=== PATIENT | female | born 1945 | race Caucasian/White ===

== ENCOUNTER 2017-01-11 18:02 | Inpatient (IN) | payer OTHER ==
[~2017-01-11] VITALS: Ht 154.9 cm; Wt 87.7 kg
[~2017-01-11 18:02] MED LIST: ATOR-22 PO; CHOL100040 PO; CLON1TAB3 PO; CZR25 PO; FLUO40CA8 PO; GABA1CAP5 PO; GLIP5TAB3 PO; INSU1INJ SC; LISI10TA PO; MAGN500T4 PO; MECL1TAB42 PO; METF500T5 PO; OMEP20CA9 PO; VERA240C2 PO
[2017-01-11 20:30] VITALS: BP 161/77; PULSE 106; TEMP 37.8; O2SAT 90; Ht 154.9 cm; Wt 87.7 kg
--- NOTE | 2017-01-11 20:34 | HISTORY & PHYSICAL EXAMINATION ---
DATE OF ADMISSION: 01/11/2017 ADMISSION HISTORY AND PHYSICAL This is admission to [facility]. SUBJECTIVE CHIEF COMPLAINT: Right elbow pain. HISTORY OF PRESENT ILLNESS: This is a patient who has had progressively worsening right elbow pain over the past 2 months. She was seen in the beginning of August 2016 at our [facility] [place] office and had an injection performed into the right elbow into the olecranon area. Approximately 2 months later, she started having swelling again; however, the swelling is more severe. She had been just treated conservatively with watchful waiting as well as anti-inflammatory medications; however, the swelling began to worsen more recently. She was seen earlier today by Dr. Jamilah Man at [facility] office and labs were performed as well as a prescription for Keflex sent to her pharmacy. She was also instructed to follow up here at [facility] afterhours urgent care. After evaluation and treatment, she is now being admitted directly to the hospital for IV antibiotic treatment and possible surgical evaluation within the next 1-2 days. PAST MEDICAL HISTORY: Hypertension, hyperlipidemia, obesity, COPD; type 2 diabetes, however, treated with insulin; chronic kidney disease, stage III; history of CVA, history of renal calculi and depression. CURRENT MEDICATIONS: Metformin ER 500 mg 2 by mouth daily, verapamil SR 240 mg 1 p.o. daily, fluoxetine 40 mg 1 p.o. daily, Plavix 75 mg 1 p.o. daily, Prilosec 20 mg 1 p.o. daily, Klonopin 0.5 mg 1 p.o. q. 8 hours as needed for anxiety, Proventil HFA 2 puffs q.i.d. as needed, meclizine 25 mg 1 p.o. t.i.d. p.r.n., lisinopril 2.5 mg 1/2 tablet p.o. daily, aspirin 81 mg p.o. daily, magnesium gluconate 250 mg p.o. daily, vitamin D3 200 units p.o. daily, Novolin 70/30 insulin 15 units subQ q.a.m. and 12 units subQ at bedtime, glipizide 5 mg 1 p.o. daily, Lipitor 20 mg 1 p.o. at bedtime, Neurontin 400 mg one p.o. at bedtime. FAMILY HISTORY: Noncontributory. SOCIAL HISTORY: The patient is a previous smoker. She currently has been using a vaporizer for nicotine to help stop smoking. The patient denies alcohol use. PAST SURGICAL HISTORY: Appendectomy, cholecystectomy, tubal ligation, umbilical hernia surgery, a and a knee surgery. ALLERGIES: No known drug allergies. OBJECTIVE PHYSICAL EXAMINATION: GENERAL: The patient is alert and oriented x3. She is in no acute distress. She is a well-dressed, well-nourished 71-year-old female. Her affect is appropriate. She is having obvious noted discomfort within the right elbow; however, she sits comfortably in her exam chair. CARDIOVASCULAR: Heart has a regular rhythm and rate without murmurs. LUNGS: Clear to auscultation; however, there are decreased breath sounds throughout. Her radial pulses +2/4. Cap refill is less than 2 seconds. LYMPHATIC: No evidence of any swollen lymph nodes. MUSCULOSKELETAL: Upon inspection of the patient's right elbow, the patient is noted to have relatively small olecranon bursitis, measuring approximately 2.5 cm in diameter. There is mild fluctuance; however, there is moderate erythema noted. There are no open areas noted. There is no draining. There is noted to be some fluctuance of the bursa. The patient is also noted to have a large area of erythema more distally along the forearm as well as moderate to severe swelling of the proximal aspect of the forearm, particularly when compared to her left forearm. There is painful range of motion right elbow, both passively and actively, also any palpation of the forearm and elbow create moderate pain. NEUROLOGIC: Sensation is normal intact distally, right upper extremity in the ulnar, radial, and median nerve distributions. SKIN: As previously noted, there are no open areas within the right elbow; however, the patient had noted that there have been some drainage from the elbow, within the past few days. X-RAY EXAM: Three views of the right elbow were reviewed. There are no fractures or dislocations noted. There is a small spur located at the most proximal aspect of the olecranon, no significant arthritis noted of the right elbow. ASSESSMENT AND DIAGNOSES: 1. Septic olecranon bursitis, right upper extremity. 2. Right upper extremity cellulitis. PLAN: Above assessment was discussed with the patient. At this time, the patient's right elbow was aspirated using a 10 mL syringe and an 18 gauge needle, there is a very small amount approximately 0.5 to 1 mL of bloody purulent material aspirated from the right elbow. This was marked as specimen and the patient is instructed to take it to the hospital with her. At this time, she will be directly admitted to [facility] [address] under Dr. Faust's service. At this time, she is to continue all of her home medications. She will also be started on Ancef 2 grams IV every 8 hours. Also Sorento 5/325 mg 1 to 2 by mouth every 6 hours as needed for pain. The aspirate is going to be sent for Gram stain and also culture and sensitivity for aerobic and anaerobic. The patient is to hand carry this from the office to the hospital. There were previous labs done at [facility]. There was a CBC, sed rate, and a CRP as well as I believe a uric acid. We should be able to have those labs imported to the hospital system. Will also have a BMP and a PT/INR performed upon the patient's admission. [facility] care as well as COPD care and also clearance for I\T\D of the right elbow, possibly on Saturday, which is 2 days from now. At this time, will keep a dry dressing on the patient's right elbow. We also may want to consider an MRI of the right elbow, if she does not seem like she is progressing tomorrow after 2-3 doses of her IV antibiotics. She will be reevaluated tomorrow by Dr. Faust or Link Schaffer PA-C for any further imaging. She was instructed there may be possibility of surgical treatments in approximately 2 days. ANKUSH
[2017-01-11] MEDS ORDERED: HYDROCODONE/ACETAMOPHEN 5/325MG TAB PO PRN (21:15)
[2017-01-11] MEDS ORDERED: GLUCOSE 10 TABS/TUBE PO PRN ×2 (21:15→22:30)
[2017-01-11] MEDS ORDERED: DEXTROSE 50% 50 ML SYR IV PRN ×2 (21:15→22:30)
[2017-01-11] MEDS ORDERED: GLUCOSE 40% GEL 15 GM TUBE PO PRN ×2 (21:15→22:30)
[2017-01-11] MEDS ORDERED: GLUCAGON FOR INJ 1 MG VIAL SQ PRN ×2 (21:15→22:30)
[2017-01-11] MEDS ORDERED: CLONAZEPAM 0.5 MG TAB PO PRN (21:45)
[2017-01-11] MEDS ORDERED: ALBUTEROL HFA INHALER 18 GM INH PRN (21:45)
[2017-01-11] MEDS: GABAPENTIN 400 MG CAP PO SCH (21:59)
[2017-01-11] MEDS: ATORVASTATIN 20 MG TAB PO SCH (21:59)
[2017-01-11] MEDS ORDERED: CEFAZOLIN SOD 2000 MG in DEXTROSE 5% 50ML IV SCH (22:00)
[2017-01-11] MEDS ORDERED: ACETAMINOPHEN 325 MG TAB PO ONE (22:20)
[2017-01-11 22:21] LABS: INR 0.9 (0.9-1.1); PROTHROMBIN TIME (PATIENT) 9.5 SECONDS (9.0-12.0)
[2017-01-11] MEDS ORDERED: ACETAMINOPHEN 325 MG TAB PO PRN (22:30)
[2017-01-11 22:33] LABS: PARTIAL THROMBOPLASTIN RATIO 0.9
[2017-01-11 22:43] LABS: ALT/SGPT 22 U/L (12-78); AST/SGOT 13 U/L (15-37); BLOOD UREA NITROGEN 14 mg/dl (7-18); BUN/CREATININE RATIO 11.3 (10-20); CALCIUM 9.4 mg/dl (8.5-10.1); CARBON DIOXIDE 25 mmol/L (21-32); CHLORIDE 99 mmol/L (98-107); GLUCOSE 381 mg/dl (70-99); MAGNESIUM 1.6 mg/dl (1.8-2.4); POTASSIUM 4.2 mmol/L (3.5-5.1); SODIUM 135 mmol/L (136-145)
[2017-01-11] MEDS ORDERED: SODIUM CHLORIDE 0.9% 1000ML 1,000 ML IV STA ×2 (22:46→23:25)
[2017-01-11 22:48] LABS: ALKALINE PHOSPHATASE 113 U/L (45-117)
[2017-01-11 22:54] LABS: BETA-HYDROXYBUTYRATE 1.34 mg/dL (0.2-2.81)
[2017-01-11] MEDS ORDERED: INSULIN GLARGINE SOLOSTAR 100 UNITS/ML 3 ML PEN SC ONE (23:00)
[2017-01-11] MEDS ORDERED: MAGNESIUM SULFATE 1GM / D5W 1 GM in PREMIXED IN D5W 100 ML IV ONE (23:00)
[2017-01-11] MEDS ORDERED: INSULIN ASPART 100 UNITS/ML 3 ML PEN SC ONE (23:00)
[2017-01-11 23:02] VITALS: BP 182/82; PULSE 104; TEMP 37.2; O2SAT 93
[2017-01-11] MEDS ORDERED: VERAPAMIL HCL 240 MG TABCR PO ONE (23:07)
--- NOTE | 2017-01-11 23:08 | DIAGNOSTIC IMAGING REPORT ---
CHEST ONE VIEW PORTABLE CLINICAL HISTORY: Hypoxia, fever. COMPARISON STUDY: 04/01/2014 FINDINGS: The cardiac and mediastinal contours remain stable. There is mild prominence of the left main pulmonary artery segment. There is no failure. There is no focal pulmonary consolidation. There are no pleural effusions.[ IMPRESSION: No active disease in the chest. Electronically signed by: Narendra Turner M.D. 01/11/2017 11:07 PM Dictated Date/Time: 01/11/2017 11:07 PM
[2017-01-11] MEDS ORDERED: MoRPHine SULFATE 4 MG/ML 1 ML CARP\\VIAL IV PRN (23:30)
[2017-01-11] MEDS ORDERED: LORAZEPAM 2 MG/ML 1 ML VIAL IV PRN (23:30)
[2017-01-11] MEDS ORDERED: ONDANSETRON INJ 2 MG/ML 2 ML VIAL IV PRN (23:30)
[2017-01-11] MEDS ORDERED: LISINOPRIL 2.5 MG TAB PO ONE (23:51)
[2017-01-12] VITALS (11 sets, daily range): BP systolic 117–160; BP diastolic 69–79; PULSE 72–96; TEMP 37–37.3; O2SAT 85–96
[2017-01-12] MEDS ORDERED: PIPERACILL/TAZOBAC IV 4.5 GM in DEXTROSE 5% 100ML 100 ML IV SCH ×2
[2017-01-12] MEDS ORDERED: VANCOMYCIN INJ 2,200 MG in SODIUM CHLORIDE 0.9% 500ML 500 ML IV STA (00:08)
[2017-01-12] MEDS ORDERED: VANCOMYCIN CONSULT ACTIVE PRN (00:11)
[2017-01-12] MEDS ORDERED: PIPERACILL/TAZOBAC IV 3.375 GM in DEXTROSE 5% 100ML IV ONE (00:15)
[2017-01-12] MEDS ORDERED: LORAZEPAM INJ 0.5 MG in SYRINGE 0.75 ML IV PRN (00:15)
[2017-01-12] MEDS ORDERED: PIPERACILL/TAZOBAC CONSULT ACTIVE PRN (00:15)
[2017-01-12] MEDS ORDERED: SODIUM CHLORIDE 0.9% 1000ML 1,000 ML IV SCH (01:00)
[2017-01-12] MEDS ORDERED: LEVALBUTEROL/IPRATROPIUM NEB INH PRN (04:00)
[2017-01-12] MEDS ORDERED: LEVALBUTEROL 1.25MG/0.5ML NEB INH PRN (04:45)
[2017-01-12] MEDS ORDERED: IPRATROPIUM BROMIDE NEB SOLN 0.02% 2.5 ML VIAL INH PRN (04:45)
[2017-01-12 04:56] LABS: BASO % 0.3 %; BASO ABS # 0.03 K/uL (0-0.2); COMPLETE YES; EOS % 1.9 %; HEMATOCRIT 34.9 % (37-47); IG% 0.4 %; LYMPH % 12.6 %; LYMPH ABS # 1.49 K/uL (1.2-3.4); MEAN CELL VOLUME 79.5 fL (80-100); MEAN CORPUSCULAR HEMOGLOBIN 26.2 pg (25-34); MEAN PLATELET VOLUME 9.1 fL (7.4-10.4); MONO % 6.3 %; NEUT % 78.5 %; PLATELET COUNT 277 K/uL (130-400); RED BLOOD COUNT 4.39 M/uL (4.2-5.4); WHITE BLOOD COUNT 11.86 K/uL (4.8-10.8)
[2017-01-12 05:01] LABS: ARTERIAL BLD GAS O2 SATURATION 95.4 % (90-95); ARTERIAL BLOOD GAS BASE EXCESS 0.8 mEq/L (-9-1.8); ARTERIAL BLOOD GAS HCO3 25 mmol/L (19-24); ARTERIAL BLOOD GAS PO2 79 mm/Hg (80-95); ARTERIAL BLOOD GAS pH 7.44 (7.35-7.45); O2 ADMINISTRATION 2 L
[2017-01-12 05:02] LABS: ALLEN TEST POS (POS)
[2017-01-12 05:12] LABS: BUN/CREATININE RATIO 10.4 (10-20); CALCIUM 8.2 mg/dl (8.5-10.1); CREATININE 0.96 mg/dl (0.60-1.20); MAGNESIUM 2.1 mg/dl (1.8-2.4); POTASSIUM 3.9 mmol/L (3.5-5.1)
[2017-01-12] MEDS ORDERED: PIPERACILL/TAZOBAC IV 3.375 GM in DEXTROSE 5% 100ML IV SCH (06:00)
[2017-01-12] MEDS: PANTOprazole SOD 40 MG TAB PO SCH (08:23)
[2017-01-12] MEDS: CHOLECALCIFEROL 1000 INTER.UNIT TAB PO SCH (08:24)
[2017-01-12] MEDS: FLUOXETINE HCL 20 MG CAP PO SCH (08:24)
[2017-01-12] MEDS: LISINOPRIL 2.5 MG TAB PO SCH (08:26)
[2017-01-12] MEDS ORDERED: INSULIN HUMAN 70% NPH/30% REGULAR SC SCH ×2 (08:30→17:45)
--- NOTE | 2017-01-12 08:32 | DIAGNOSTIC IMAGING REPORT ---
CHEST ONE VIEW PORTABLE CLINICAL HISTORY: Hypoxemia COMPARISON STUDY: Chest radiograph January 11, 2017. FINDINGS: Lung volumes are normal. No pneumothorax or pleural effusion is present. Cardiomediastinal silhouette is normal. There is mild right infrahilar opacity. IMPRESSION: No definite acute findings. Equivocal right infrahilar opacity likely reflects normal vessels or atelectasis. Mild airspace disease could appear similar but is considered less likely. Electronically signed by: Vincent Silverman M.D. 01/12/2017 8:31 AM Dictated Date/Time: 01/12/2017 8:30 AM
--- NOTE | 2017-01-12 08:45 | Pharmacy Progress Note ---
Pharmacy Antibiotic Consult Date of Service: Jan 12, 2017. Pharmacy Dosing Scope Pharmacy is consulted to initiate vancomycin/Zosyn IV dosing therapy, order appropriate labs and adjust drug dose/frequency. Subjective The patient is a 71 year old female admitted on Jan 11, 2017 at 20:29 with bursitis and possible cellulitis around her elbow. She was seen as an outpatient around August for swelling in her elbow. She was given an injection. The swelling has worsened and she was treated conservatively. Now, after an appointment with her physician, an aspirate which was purulent was preformed and she was sent to the hospital. Objective Height (Feet): 5 Height (Inches): 1.00 Weight (Kilograms): 87.700 Lab Results (24hrs): Laboratory Tests Test 01/11/17 21:57 01/12/17 04:45 BUN/Creatinine Ratio 11.3 10.4 Blood Urea Nitrogen 14 mg/dl 10 mg/dl Creatinine 1.20 mg/dl 0.96 mg/dl White Blood Count 11.86 K/uL Red Blood Count 4.39 M/uL Hemoglobin 11.5 g/dL Hematocrit 34.9 % Mean Corpuscular Volume 79.5 fL Mean Corpuscular Hemoglobin 26.2 pg Mean Corpuscular Hemoglobin Concent 33.0 g/dl Platelet Count 277 K/uL Mean Platelet Volume 9.1 fL Neutrophils (%) (Auto) 78.5 % Lymphocytes (%) (Auto) 12.6 % Monocytes (%) (Auto) 6.3 % Eosinophils (%) (Auto) 1.9 % Basophils (%) (Auto) 0.3 % Neutrophils # (Auto) 9.31 K/uL Lymphocytes # (Auto) 1.49 K/uL Monocytes # (Auto) 0.75 K/uL Eosinophils # (Auto) 0.23 K/uL Basophils # (Auto) 0.03 K/uL Micro Results: RUN DATE: 01/12/17 [facility] LAB PAGE 1 RUN TIME: 805 Specimen Inquiry PATIENT: GISELE MCLAUGHLIN LOC: [facility] # : [id number] AGE/SX: 71/F ROOM: [facility] REG : 01/11/[address]: Jay Faust D.O. : 1945 BED: 2 DIS : STATUS: ADM IN TLOC: SPEC #: [id number] LILIA: 01/11/17 STATUS: RES REQ #: [id number] RECD: 01/11/[address] [facility] [address]: Sebastian Al PA-C SOURCE: ASP-OTHER ENTR: 01/11/[address] [facility] [address]: Jay Faust D.O. [facility]: Beti Berkowitz D.O. Oconer, Joseph N., M.D. ORDERED: AER/SHAHID CULTSMR COMMENTS: Specimen Comment PATIENT IS HANDCARRYING FROM OFFICE Has Specimen Been Obtained/Collected? Y Procedure Result Verified Site GRAM STAIN Final 01/12/17-805 RESULT MANY WBCs SEEN MODERATE GRAM POSITIVE COCCI OR AER/SHAHID CULT Results Pending Assessment & Plan Loading dose: vancomycin 2200 mg (~25 mg/kg) IV X 1 dose then: vancomycin 1150 mg IV every 16 hours (population pharmacokinetics suggest a half-life of 15 hours and an elimination constant of 0.046 hr-1; due to her body habitus with a BMI of 36.6 kg/m2, a lower mg/kg approach with aggressive half-life dosing was utilized). Goal peak level estimate: between 35 - 40 mcg/mL. Goal trough level estimate: between 15 - 20 mcg/mL (due to gram positive cocci found in elbow aspirate). Trough has been ordered for: prior to 0200 dose. ZOSYN: patient was loaded with Zosyn 3.375 gm IV x 1 then continued on Zosyn 3.375 gm IV q8 hours. Her BMI is borderline for more aggressive dosing. Will monitor patient and can escalate as appropriate. Pharmacy will continue to follow and will adjust dose/frequency as necessary. Thank you
[2017-01-12] MEDS: INSULIN ASPART 100 UNITS/ML 3 ML PEN SC SCH ×4 (08:48→20:36)
[2017-01-12] MEDS: INSULIN GLARGINE SOLOSTAR 100 UNITS/ML 3 ML PEN SC SCH ×2 (08:49→20:37)
[2017-01-12] MEDS ORDERED: METFORMIN HCL 500 MG TABCR PO SCH (09:00)
[2017-01-12] MEDS ORDERED: VERAPAMIL HCL 240 MG TABCR PO SCH (09:00)
[2017-01-12] MEDS ORDERED: INSULIN GLARGINE SOLOSTAR 100 UNITS/ML 3 ML PEN SC SCH (09:00)
[2017-01-12] MEDS ORDERED: CLOPIDOGREL BISULFATE 75 MG TAB PO SCH (09:00)
[2017-01-12] MEDS ORDERED: LISINOPRIL 2.5 MG TAB PO SCH (09:00)
[2017-01-12] MEDS ORDERED: ENOXAPARIN 40 MG/0.4 ML SYR SQ SCH (09:00)
[2017-01-12] MEDS ORDERED: ASPIRIN 81 MG ECTAB PO SCH (09:00)
--- NOTE | 2017-01-12 09:04 | DIAGNOSTIC IMAGING REPORT ---
RIGHT ELBOW ULTRASOUND CLINICAL HISTORY: Right elbow swelling. Septic olecranon bursitis. COMPARISON STUDY: No previous studies for comparison. FINDINGS: Sonography of the right elbow reveal no mass or fluid collection. There was extensive subcutaneous edema. IMPRESSION: 1. Extensive subcutaneous edema of the right elbow. 2. No fluid collection identified by sonography. Electronically signed by: Vincent Silverman M.D. 01/12/2017 9:03 AM Dictated Date/Time: 01/12/2017 9:01 AM
--- NOTE | 2017-01-12 09:48 | Orthopedic Progress Note ---
Orthopedic Progress Note Date of Service Jan 12, 2017. Subjective Reports: feeling well, Denies: complaints Additional Notes: Pt awake, alert and states that her elbow is feeling much better this AM. She is able to move the elbow compared to last night. No other issues. Objective dressing removed. Swelling and darkened erythema over the elbow itself. Small area noted where it's been draining. Minimal to no drainage noted on dressing. Mild erythema down the forearm which pt states has gotten better. Swelling starting to slowly resolve. Area over elbow is tender on palpation. I cannot express any drainage. Boggy and tender. Date Time Temp Pulse Resp B/P Pulse Ox O2 Delivery O2 Flow Rate FiO2 01/12/17 08:19 84 131/79 01/12/17 06:58 37.0 72 16 146/72 95 Nasal Cannula 2.0 01/12/17 03:57 94 Nasal Cannula 2.0 01/12/17 03:46 93 Nasal Cannula 2.0 01/12/17 03:46 85 Room Air 01/12/17 03:44 86 Room Air 01/12/17 03:43 87 Room Air 01/12/17 03:37 89 Room Air 01/12/17 03:37 88 Room Air 01/12/17 03:27 96 Nasal Cannula 4.0 01/12/17 03:24 37.1 83 16 117/72 85 Room Air 01/11/17 23:02 37.2 104 18 182/82 93 Room Air 01/11/17 23:00 Room Air 01/11/17 20:30 37.8 106 17 161/77 90 Room Air Laboratory Results 24 Hours: Test 01/11/17 21:51 01/12/17 04:45 Prothromb Time International Ratio 0.9 Prothrombin Time 9.5 SECONDS White Blood Count 11.86 K/uL Red Blood Count 4.39 M/uL Hemoglobin 11.5 g/dL Hematocrit 34.9 % Mean Corpuscular Volume 79.5 fL Mean Corpuscular Hemoglobin 26.2 pg Mean Corpuscular Hemoglobin Concent 33.0 g/dl Platelet Count 277 K/uL Mean Platelet Volume 9.1 fL Neutrophils (%) (Auto) 78.5 % Lymphocytes (%) (Auto) 12.6 % Monocytes (%) (Auto) 6.3 % Eosinophils (%) (Auto) 1.9 % Basophils (%) (Auto) 0.3 % Neutrophils # (Auto) 9.31 K/uL Lymphocytes # (Auto) 1.49 K/uL Monocytes # (Auto) 0.75 K/uL Eosinophils # (Auto) 0.23 K/uL Basophils # (Auto) 0.03 K/uL Additional Notes: RUN DATE: 01/12/17 [facility] LAB PAGE 1 RUN TIME: 805 Specimen Inquiry PATIENT: ARNOLDOGISELE Regina LOC: [facility] U # : [id number] AGE/SX: 71/F ROOM: [facility] REG : 01/11/[address]: Jay Faust D.O. : 1945 BED: 2 DIS : STATUS: ADM IN TLOC: SPEC #: [id number] LILIA: 01/11/17 STATUS: RES REQ #: [id number] RECD: 01/11/[address]: Sebastian Al PA-C SOURCE: ASP-OTHER ENTR: 01/11/[address]: Jay Faust D.O. [facility]: Beti Berkowitz D.O. Oconer, Joseph N., M.D. ORDERED: AER/SHAHID CULTSMR COMMENTS: Specimen Comment PATIENT IS HANDCARRYING FROM OFFICE Has Specimen Been Obtained/Collected? Y Procedure Result Verified Site GRAM STAIN Final 01/12/17 RESULT MANY WBCs SEEN MODERATE GRAM POSITIVE COCCI OR AER/SHAHID CULT Results Pending ---- Assessment & Plan Assessment: Right Septic Olecranon Bursitis Plan: Cx as noted above Continue IV antibx and await culture results. Feeling better after only 12 hours of antibx Plan for possible I&D tomorrow of the Olecranon Bursa Inhouse Planning Pain Management: Morphine DVT Prophylaxis: ASA
--- NOTE | 2017-01-12 10:35 | INTERNAL MEDICINE CONSULTATION ---
DATE OF CONSULTATION: 01/12/2017 DATE OF CONSULTATION: 01/12/2017. Hx obtained from px and records. PRIMARY CARE DOCTOR: Dr. Thibodeaux. Patient seen at the request of Dr. Faust/Sebastian Al PA-C for preop eval and medical management. Patient currently admitted under Orthopedic service for septic bursitis of the right elbow. HISTORY OF PRESENT ILLNESS: Medical history significant for COPD as per records, past tobacco abuse, hypertension, DM2 insulin requiring, history of CVA status post TPA. Recent confinement 2013 for CVA sp TPA. For a month now patient has had elbow swelling on the right, intermittent injections [place] [facility] Last week worsening discomfort, some chills, worsening right elbow pain. Note of purulent drainage. No cp, no shortness of breath. Patient was sent at [facility] urgent care by PCP. Aspiration done. Px sent to the hospital as direct admit. MEDICAL HISTORY: As above. OPERATIONS: She has had appendectomy, cholecystectomy, bilateral tubal ligation, hernia repair, sinus infection, knee surgery. HOME MEDICATIONS: Include cephalexin, insulin NPH, glipizide, metformin, verapamil, fluoxetine, clopidogrel, omeprazole, clonazepam, albuterol, aspirin, magnesium oxide, lisinopril, Plavix. FAMILY HISTORY: Heart disease, stroke, diabetes. PERSONAL AND SOCIAL HISTORY: Past tobacco abuse, no chronic intake of alcoholic beverages. Retired [employer]. REVIEW OF SYSTEMS: As per HPI, all other ROS negative FUNCTIONALITY : able to go up 2 flight of stairs, able to do house work wo undue chest pain or shortness of breath PHYSICAL EXAMINATION: VITAL SIGNS: Blood pressure was noted to be 170/100, pulse rate 106, RR 17, T 37.8, O2 sats 99 on room air. GENERAL: Noted to be slightly uncomfortable, obese, no respiratory distress. SKIN: Normal color. HEAD, EYES, EARS, NOSE, AND THROAT: [place] palpebral conjunctivae. Dry mucosa. NECK: Short neck. LUNGS: Decreased breath sounds. HEART: Tachycardic. ABDOMEN: Some distention, nontender. EXTREMITIES: Dressing on the right elbow. NEUROLOGIC: No gross focality. LABORATORY DATA: outpx CBC hemoglobin 13, white cell 10, platelets 200 Sodium 135, potassium 4.2, chloride 99, CO2 25, BUN 40, creatinine 1.2, glucose 381, Lactic acid was 3.2. Hemoglobin A1c October 2016 was 7.5. EKG: Rate of 105, sinus tachycardia. Chest x-ray no infiltrate. ASSESSMENT : 1. Severe sepsis SIRS plus lactic acid elevation secondary to infected olecranon bursitis, R. 2. Hypertension, elevated 2 to missed meds and RUE pain. 3. DM2, insulin requiring, suboptimal control as of recent outpx HgA1c. 4. Chronic obstructive pulmonary disease no issues 5. history of cerebrovascular accident status post TPA 6. past tobacco abuse. RECOMMENDATIONS: No medical contraindication to contemplated orthopedic procedure. Follow cultures. IV fluids. Follow lactic acid. Vancomycin, Zosyn for now with severe sepsis criteria. de-escalate tx pending CS results availability Agree w/ continuation of home anti-platelet rx for secondary stroke prevention Basal insulin, ISS BG goal 140-180. Carb count coverage indicated for suboptimal blood sugar control. DVT prophylaxis with Lovenox subQ. Thank you much for this consultation. Dr. Rodrigez will follow the patient's progress. ANKUSH
[2017-01-12] MEDS: MECLIZINE HCL 25 MG TAB PO PRN (16:01)
[2017-01-12] MEDS ORDERED: VANCOMYCIN INJ 1,150 MG in SODIUM CHLORIDE 0.9% 250ML 250 ML IV SCH (18:00)
[2017-01-12] MEDS: GABAPENTIN 400 MG CAP PO SCH (20:34)
[2017-01-12] MEDS: ATORVASTATIN 20 MG TAB PO SCH (20:34)
[2017-01-13] VITALS (9 sets, daily range): BP systolic 96–151; BP diastolic 58–83; PULSE 70–89; TEMP 36.6–37; O2SAT 91–97
[2017-01-13] MEDS ORDERED: NURSING VERBAL MED ORDER ONE ×3 (01:15→17:30)
[2017-01-13] MEDS: INSULIN ASPART 100 UNITS/ML 3 ML PEN SC SCH ×4 (06:00→20:54)
[2017-01-13] MEDS ORDERED: CEFAZOLIN IV ONE (08:00)
[2017-01-13] MEDS ORDERED: DEXTROSE 5% IV ONE (08:00)
[2017-01-13] MEDS ORDERED: [UNRECOGNIZED DRUG - REMARK] SCH (09:00)
[2017-01-13] MEDS: FLUOXETINE HCL 20 MG CAP PO SCH (09:24)
[2017-01-13] MEDS: CHOLECALCIFEROL 1000 INTER.UNIT TAB PO SCH (09:24)
[2017-01-13] MEDS: LISINOPRIL 2.5 MG TAB PO SCH (09:24)
[2017-01-13] MEDS: PANTOprazole SOD 40 MG TAB PO SCH (09:25)
[2017-01-13] MEDS: VERAPAMIL HCL 240 MG TABCR PO SCH (09:29)
--- NOTE | 2017-01-13 09:42 | History & Physical Bridge Note ---
H&P Re-Evaluation Bridge Note: I have examined the patient, reviewed the History & Physical and in the interval since the performance of the History & Physical I have noted the following changes of clinical significance: No changes noted
[2017-01-13] MEDS ORDERED: ONDANSETRON INJ 2 MG/ML 2 ML VIAL IV PRN (10:00)
[2017-01-13] MEDS ORDERED: ATROPINE SULFATE 0.1 MG/ML 5ML SYR IV PRN (10:00)
[2017-01-13] MEDS ORDERED: CEFAZOLIN IV 1,000 MG in DEXTROSE 5% 50ML 50 ML IV SCH (10:00)
[2017-01-13] MEDS ORDERED: FENTANYL CITRATE INJ 50 MCG/1 ML 2 ML VIAL IV PRN (10:00)
[2017-01-13] MEDS ORDERED: EpHEDrine SULFATE INJ 50 MG/ML AMP IV PRN (10:00)
[2017-01-13] MEDS ORDERED: MIDAZOLAM HCL 1 MG/ML 2ML VIAL ONE (10:02)
[2017-01-13] MEDS ORDERED: FENTANYL CITRATE INJ 50 MCG/1 ML 2 ML VIAL ONE (10:02)
[2017-01-13] MEDS ORDERED: BUPIVACAINE 0.5 % 5 MG/1 ML MPF 30ML VIAL ONE (10:09)
[2017-01-13] MEDS ORDERED: BACITRACIN 50000 UNIT VIAL ONE (10:09)
[2017-01-13] MEDS ORDERED: LIDOCAINE HCL 2% 2 ML VIAL (20MG/ML) ONE (10:39)
[2017-01-13] MEDS ORDERED: PROPOFOL IV EMULSION 10 MG/ML 20 ML VIAL IV ONE (10:39)
[2017-01-13] MEDS ORDERED: EpHEDrine SULFATE 50MG/5ML SYR ONE (11:04)
[2017-01-13] MEDS ORDERED: ONDANSETRON INJ 2 MG/ML 2 ML VIAL ONE (11:04)
--- NOTE | 2017-01-13 11:39 | [facility] Post Operative Brief Note ---
Immediate Operative Summary Operative Date Jan 13, 2017. Pre-Operative Diagnosis Septic Right Elbow Bursitis Post-Operative Diagnosis Same as preoperative diagnosis Procedure(s) Performed 1. Incision and Drainage Right Olecranon Bursa (Elbow) 2. Resection septic olecranon bursa Surgeon Dr. Jay Faust Combat[employer] Surgeon(s) None Estimated Blood Loss 20 mL Findings See dict Specimens Microbiology #1: Right elbow bursa Drains Iodoform gauze x 1 Anesthesia GLMA w/ local Complication(s) None Disposition Recovery Room / PACU
--- NOTE | 2017-01-13 11:56 | Anesthesiology Progress Note ---
Anesthesia Post Op Note Date & Time Jan 13, 2017 at 11:56 Vital Signs Pain Intensity: 2.0 Vital Signs Past 12 Hours Date Time Temp Pulse Resp B/P Pulse Ox O2 Delivery O2 Flow Rate FiO2 01/13/17 07:15 Room Air 01/13/17 07:14 37.0 89 16 151/83 91 Room Air 01/13/17 00:40 Room Air Notes Mental Status: alert / awake / arousable, participated in evaluation Pt Amnestic to Procedure: Yes Nausea / Vomiting: adequately controlled Pain: adequately controlled Airway Patency, RR, SpO2: stable & adequate BP & HR: stable & adequate Hydration State: stable & adequate Anesthetic Complications: no major complications apparent
[2017-01-13] MEDS: INSULIN GLARGINE SOLOSTAR 100 UNITS/ML 3 ML PEN SC SCH ×2 (12:39→20:55)
[2017-01-13] MEDS: CEFAZOLIN IV 1,000 MG in DEXTROSE 5% 50ML 50 ML IV SCH ×2 (14:35→21:59)
[2017-01-13] MEDS: OXYCODONE HCL IR 5 MG TAB (IMMEDIATE RELEASE) PO PRN ×2 (14:43→20:45)
--- NOTE | 2017-01-13 16:58 | OPERATIVE REPORT ---
DATE OF OPERATION: 01/13/2017 PREOPERATIVE DIAGNOSIS: Right septic olecranon bursitis. POSTOPERATIVE DIAGNOSIS: Same. PROCEDURES: 1. Incision and drainage, right elbow olecranon bursa. 2. Resection of septic olecranon bursa. SURGEON: Dr. Faust. SALESPERSON WOMEN'S DRESSES: None. ANESTHESIA: General LMA with local. SPECIMENS: Aerobic, anaerobic, Gram stain and culture. DRAIN: Iodoform gauze x1. COMPLICATIONS: None. BLOOD LOSS: 20 mL. PERTINENT HISTORY: This is a 71-year-old female who has had off and on right elbow bursitis for the last several months. Approximately 2 months ago, she had a steroid injection performed my partner Dr. Mustafa. She felt somewhat relieved and then over the last several days, she had pain, redness, swelling and worsening of elbow bursitis with increased redness, heat and swelling. She had limitation of range of motion of her elbow and she was then attempted on oral antibiotics, followed by observation in our urgent care. At that point, elbow bursa was severely inflamed, reddened and fluctuant. Aspirate was performed and the patient was then admitted to the hospital for treatment of her cellulitis and the bursitis. After improvement of the cellulitis with IV antibiotics, the patient was then scheduled for surgery as a discrete abscess had formed over the elbow bursa. The patient was then scheduled for surgery as indicated. All potential risks, benefits, complications, alternatives, rehab, potential for incomplete relief of symptoms, need for further surgery, DVT, PE, , persistent pain, swelling, scarring, weakness, neurovascular injury, wound complications were discussed with the patient. The patient decided to proceed with the procedure as indicated. PROCEDURE IN DETAIL: The patient was taken to the operative suite and placed supine on the operating room table. After review of consent and identification of proper operative site, the patient was anesthetized, LMA was placed. Next, tourniquet was applied high on the right upper extremity over cast padding. Right upper extremity was then sterilely prepped and draped in usual fashion, elevated and tourniquet inflated to 250 mmHg. There was no exsanguination performed due to the infection. Next, the 15 blade scalpel was used to make a curvilinear incision centered over the olecranon process of the right elbow. Careful dissection was performed with Metzenbaum scissors, through the subcutaneous tissue and then the olecranon bursa was then clearly defined. Next, the bursa was partially ruptured and specimens were taken for culture. These were passed off for aerobic, anaerobic and Gram stain cultures. Next, the olecranon bursa after it had been completely delineated, was then excised in its entirety using a 15 blade scalpel. A rongeur was then used to debride the surrounding soft tissue. Next, a pulsatile lavage of 3 liters with bacitracin was then used to cleanse her right elbow and the right elbow olecranon region minus the bursa and then top gloves and top sheet were then changed and then a 3-0 nylon closure was performed of the skin and a small stab incision was made in lateral aspect of the olecranon region for placement of a 1/2 inch iodoform gauze drain. Next, a sterile compressive dressing was applied, overwrapped with an Saurabh wrap. The tourniquet was released. The patient was awakened and taken to recovery in stable condition after 10 mL of local anesthetic was injected for postop pain control. Tourniquet was removed. The patient was then taken to recovery in stable condition. I attest to the content of the Intraoperative Record and any orders documented therein. Any exceptio ns are noted below.
--- NOTE | 2017-01-13 18:26 | Progress Note ---
Subjective Date of Service: Jan 13, 2017. Subjective Pt evaluation today including: conversation w/ patient, conversation w/ family , physical exam, lab review, review of studies, review of inpatient medication list Saw/examined the patient in room 351 Had her elbow drained with bursa resection today Feeling fine post-operatively No issues to note. Denies fevers/chills Review of Systems Constitutional: No chills, No fever Musculoskeletal: + joint pain (right elbowl) Medications Current Inpatient Medications Medications (Trade) Dose Ordered Sig/[place] Route Start Time Stop Time Status Last Admin Dose Admin Gabapentin (Neurontin Cap) 400 mg HS PO 01/11/17 22:00 02/10/17 21:59 01/12/17 20:34 400 MG Atorvastatin Calcium (Lipitor Tab) 20 mg HS PO 01/11/17 22:00 02/10/17 21:59 01/12/17 20:34 20 MG Glucose (Glucose 40% Gel) 15-30 GRAMS 15 GRAMS... UD PRN PO 01/11/17 21:15 02/10/17 21:14 Glucose (Glucose Chew Tab) 4-8 Tablets 4 Tabl... UD PRN PO 01/11/17 21:15 02/10/17 21:14 Dextrose (Dextrose 50% 50ML Syringe) 25-50ML OF 50% DW IV FOR... UD PRN IV 01/11/17 21:15 02/10/17 21:14 Glucagon (Glucagon Inj) 1 mg UD PRN SQ 01/11/17 21:15 02/10/17 21:14 Miscellaneous Information (Order Awaiting Action) 1 ea QS N/A 01/12/17 00:00 02/11/17 00:00 Clonazepam (Klonopin Tab) 0.5 mg Q8H PRN PO 01/11/17 21:45 02/10/17 21:44 01/11/17 23:28 0.5 MG Cholecalciferol (Vitamin D Tab) 2,000 inter.unit DAILY PO 01/12/17 09:00 02/11/17 08:59 01/13/17 09:24 2,000 INTER.UNIT Albuterol (Ventolin Hfa) 2 puffs Q4H PRN INH 01/11/17 21:45 02/10/17 21:44 Pantoprazole Sodium (Protonix Tab) 40 mg QAM PO 01/12/17 09:00 02/11/17 08:59 01/13/17 09:25 40 MG Fluoxetine HCl (Prozac Cap) 40 mg QAM PO 01/12/17 09:00 02/11/17 08:59 01/13/17 09:24 40 MG Meclizine HCl (Antivert Tab) 25 mg TID PRN PO 01/11/17 21:45 02/10/17 21:44 01/12/17 16:01 25 MG Acetaminophen (Tylenol Tab) 650 mg Q6H PRN PO 01/11/17 22:30 02/10/17 22:29 Insulin Glargine (Lantus Solostar Pen) 15 unit BID SC 01/12/17 09:00 02/11/17 08:59 01/13/17 12:39 15 UNIT Verapamil HCl (Calan-Sr Tab) 240 mg DAILY PO 01/13/17 09:00 02/12/17 08:59 01/13/17 09:29 240 MG Lisinopril (Zestril Tab) 1.25 mg QAM PO 01/12/17 09:00 02/11/17 08:59 01/13/17 09:24 1.25 MG Ondansetron HCl (Zofran Inj) 4 mg Q6H PRN IV 01/11/17 23:30 02/10/17 23:29 Morphine Sulfate 4 mg 4 mg Q3H PRN IV 01/11/17 23:30 01/25/17 23:29 Lorazepam/Syringe (Ativan Inj/ Syringe) 1 ml @ 1 mls/min Q4H PRN IV 01/12/17 00:15 02/11/17 00:14 Ipratropium [place] (Atrovent 0.02% 0.5MG/2.5ML Neb) 0.5 mg Q4H PRN INH 01/12/17 04:45 02/11/17 04:44 Levalbuterol (Xopenex 1.25MG/ 0.5ML Neb) 1.25 mg Q4H PRN INH 01/12/17 04:45 02/11/17 04:44 Oxycodone HCl (Roxicodone Immediate Rel Tab) `1-2 tabs for pain 1 tab ... Q4HWA PRN PO 01/12/17 10:00 01/26/17 09:59 01/13/17 14:43 5 MG Miscellaneous Information 1 ea 1 ea UD N/A 01/13/17 09:00 02/12/17 08:59 Cefazolin Sodium/ Dextrose (Ancef Iv/D5 50ml) 55 ml @ 110 mls/hr Q8H IV 01/13/17 14:00 01/23/17 13:59 01/13/17 14:35 110 MLS/HR Insulin Aspart (novoLOG ASPART) SLIDING SCALE If C... ACHS SC 01/13/17 17:15 02/12/17 17:14 Aspirin (Ecotrin Tab) 81 mg HS PO 01/13/17 21:00 02/12/17 20:59 Enoxaparin Sodium (Lovenox Inj) 40 mg HS SQ 01/13/17 21:00 02/12/17 20:59 Clopidogrel Bisulfate (plAVix TAB) 75 mg QAM PO 01/14/17 09:00 02/13/17 08:59 Objective Vital Signs Date Time Temp Pulse Resp B/P Pulse Ox O2 Delivery O2 Flow Rate FiO2 01/13/17 15:40 Room Air 01/13/17 15:23 36.8 70 18 122/74 95 Room Air 01/13/17 14:32 72 18 100/61 91 01/13/17 13:37 75 16 96/58 92 Nasal Cannula 4.0 01/13/17 13:05 78 18 122/66 92 Room Air 01/13/17 12:35 97 Nasal Cannula 4.0 01/13/17 12:35 36.6 81 16 113/74 97 Nasal Cannula 4.0 01/13/17 12:15 82 15 123/73 94 Nasal Cannula 4 01/13/17 12:05 36.4 86 16 132/62 96 Nasal Cannula 4 01/13/17 11:55 90 16 136/66 98 Mask 10 01/13/17 11:45 83 19 137/71 98 Mask 10 01/13/17 11:42 36.4 86 19 137/63 98 Mask 10 01/13/17 07:15 Room Air 01/13/17 07:14 37.0 89 16 151/83 91 Room Air 01/13/17 00:40 Room Air 01/12/17 22:55 37.3 86 18 150/69 90 Room Air Physical Exam General Appearance: no apparent distress, + obese Respiratory/Chest: no respiratory distress, no accessory muscle use, + wheezing Cardiovascular: regular rate, rhythm, no murmur Extremities: normal inspection, no pedal edema, + swelling, + pertinent finding (right elbow bandaged/wrapped) Neurologic/Psychiatric: no motor/sensory deficits, alert, normal mood/affect Laboratory Results Last 24 Hours Test 01/12/17 20:22 01/13/17 06:05 01/13/17 12:11 01/13/17 16:56 Bedside Glucose 240 mg/dl 173 mg/dl 178 mg/dl 185 mg/dl Assessment and Plan This is a 71 year old obese female with PMH of COPD and tobacco use disorder, insulin dependent DM2, diabetic peripheral neuropathy, CKD stage 3, HTN, HLD presents secondary to infected right elbow Sepsis secondary to Septic Right Elbow presented with right elbow swelling, erythematous - low grade fever + lactic acidemia elbow U/S done showing subcutaneous edema right elbow aspirate - growing MSSA Continue Vancomycin, Zosyn s/p I & D and bursa resection on 01/13 by ortho deep aspirate cultures growing Insulin Dependent DM2 Lantus 15 units BID insulin sliding scale continue low dose CHRIS-I CKD stage 3 creat at baseline stop IVFs continue low dose CHRIS-I Hx. of CVA currently holding Plavix continue aspirin and Lovenox for now Plavix restart in AM (01/14) COPD patient is wheezing, with bronchial cough noted she states she's not short of breath and breathing at baseline nebulizers as needed DVT ppx Lovenox FULL CODE
[2017-01-13] MEDS: GABAPENTIN 400 MG CAP PO SCH (20:45)
[2017-01-13] MEDS: ATORVASTATIN 20 MG TAB PO SCH (20:45)
[2017-01-13] MEDS: ASPIRIN 81 MG ECTAB PO SCH (20:46)
[2017-01-13] MEDS: ENOXAPARIN 40 MG/0.4 ML SYR SQ SCH (20:47)
[2017-01-14] MEDS ORDERED: VANCOMYCIN TROUGH SCH (01:30)
[2017-01-14 03:07] VITALS: BP 103/63; PULSE 83; TEMP 36.7; O2SAT 93
[2017-01-14] MEDS: CEFAZOLIN IV 1,000 MG in DEXTROSE 5% 50ML 50 ML IV SCH ×3 (05:55→22:01)
[2017-01-14 07:49] VITALS: BP 124/68; PULSE 88; TEMP 37.2; O2SAT 96
[2017-01-14 07:53] LABS: BUN/CREATININE RATIO 13.6 (10-20); CALCIUM 9.2 mg/dl (8.5-10.1); CREATININE 1.1 mg/dl (0.60-1.20); POTASSIUM 3.9 mmol/L (3.5-5.1)
[2017-01-14 08:18] VITALS: O2SAT 96
[2017-01-14] MEDS: CLOPIDOGREL BISULFATE 75 MG TAB PO SCH (08:45)
[2017-01-14] MEDS: FLUOXETINE HCL 20 MG CAP PO SCH (08:46)
[2017-01-14] MEDS: CHOLECALCIFEROL 1000 INTER.UNIT TAB PO SCH (08:46)
[2017-01-14] MEDS: PANTOprazole SOD 40 MG TAB PO SCH (08:46)
[2017-01-14] MEDS: VERAPAMIL HCL 240 MG TABCR PO SCH (08:47)
[2017-01-14] MEDS: LISINOPRIL 2.5 MG TAB PO SCH (08:47)
[2017-01-14] MEDS: INSULIN ASPART 100 UNITS/ML 3 ML PEN SC SCH ×4 (08:51→21:00)
[2017-01-14] MEDS: INSULIN GLARGINE SOLOSTAR 100 UNITS/ML 3 ML PEN SC SCH ×2 (08:54→21:25)
[2017-01-14] MEDS: OXYCODONE HCL IR 5 MG TAB (IMMEDIATE RELEASE) PO PRN ×2 (10:12→21:17)
--- NOTE | 2017-01-14 13:23 | Progress Note ---
Subjective Date of Service: Jan 14, 2017. Subjective Pt evaluation today including: conversation w/ patient, physical exam, lab review, review of studies, review of inpatient medication list Saw/examined the patient in room 351 No significant complaints today; some swelling at the right elbow, but pain is controlled Review of Systems Constitutional: No chills, No fever Respiratory: No shortness of breath Cardiac: No chest pain Musculoskeletal: + joint pain (right elbow) Medications Current Inpatient Medications Medications (Trade) Dose Ordered Sig/[place] Route Start Time Stop Time Status Last Admin Dose Admin Gabapentin (Neurontin Cap) 400 mg HS PO 01/11/17 22:00 02/10/17 21:59 01/13/17 20:45 400 MG Atorvastatin Calcium (Lipitor Tab) 20 mg HS PO 01/11/17 22:00 02/10/17 21:59 01/13/17 20:45 20 MG Glucose (Glucose 40% Gel) 15-30 GRAMS 15 GRAMS... UD PRN PO 01/11/17 21:15 02/10/17 21:14 Glucose (Glucose Chew Tab) 4-8 Tablets 4 Tabl... UD PRN PO 01/11/17 21:15 02/10/17 21:14 Dextrose (Dextrose 50% 50ML Syringe) 25-50ML OF 50% DW IV FOR... UD PRN IV 01/11/17 21:15 02/10/17 21:14 Glucagon (Glucagon Inj) 1 mg UD PRN SQ 01/11/17 21:15 02/10/17 21:14 Miscellaneous Information (Order Awaiting Action) 1 ea QS N/A 01/12/17 00:00 02/11/17 00:00 Clonazepam (Klonopin Tab) 0.5 mg Q8H PRN PO 01/11/17 21:45 02/10/17 21:44 01/11/17 23:28 0.5 MG Cholecalciferol (Vitamin D Tab) 2,000 inter.unit DAILY PO 01/12/17 09:00 02/11/17 08:59 01/14/17 08:46 2,000 INTER.UNIT Albuterol (Ventolin Hfa) 2 puffs Q4H PRN INH 01/11/17 21:45 02/10/17 21:44 Pantoprazole Sodium (Protonix Tab) 40 mg QAM PO 01/12/17 09:00 02/11/17 08:59 01/14/17 08:46 40 MG Fluoxetine HCl (Prozac Cap) 40 mg QAM PO 01/12/17 09:00 02/11/17 08:59 01/14/17 08:46 40 MG Meclizine HCl (Antivert Tab) 25 mg TID PRN PO 01/11/17 21:45 02/10/17 21:44 01/12/17 16:01 25 MG Acetaminophen (Tylenol Tab) 650 mg Q6H PRN PO 01/11/17 22:30 02/10/17 22:29 Insulin Glargine (Lantus Solostar Pen) 15 unit BID SC 01/12/17 09:00 02/11/17 08:59 01/14/17 08:54 15 UNIT Verapamil HCl (Calan-Sr Tab) 240 mg DAILY PO 01/13/17 09:00 02/12/17 08:59 01/14/17 08:47 240 MG Lisinopril (Zestril Tab) 1.25 mg QAM PO 01/12/17 09:00 02/11/17 08:59 01/14/17 08:47 1.25 MG Ondansetron HCl (Zofran Inj) 4 mg Q6H PRN IV 01/11/17 23:30 02/10/17 23:29 Morphine Sulfate 4 mg 4 mg Q3H PRN IV 01/11/17 23:30 01/25/17 23:29 01/13/17 23:18 4 MG Lorazepam/Syringe (Ativan Inj/ Syringe) 1 ml @ 1 mls/min Q4H PRN IV 01/12/17 00:15 02/11/17 00:14 Ipratropium Leo (Atrovent 0.02% 0.5MG/2.5ML Neb) 0.5 mg Q4H PRN INH 01/12/17 04:45 02/11/17 04:44 Levalbuterol (Xopenex 1.25MG/ 0.5ML Neb) 1.25 mg Q4H PRN INH 01/12/17 04:45 02/11/17 04:44 Oxycodone HCl (Roxicodone Immediate Rel Tab) `1-2 tabs for pain 1 tab ... Q4HWA PRN PO 01/12/17 10:00 01/26/17 09:59 01/14/17 10:12 10 MG Miscellaneous Information 1 ea 1 ea UD N/A 01/13/17 09:00 02/12/17 08:59 Cefazolin Sodium/ Dextrose (Ancef Iv/D5 50ml) 55 ml @ 110 mls/hr Q8H IV 01/13/17 14:00 01/23/17 13:59 01/14/17 05:55 110 MLS/HR Insulin Aspart (novoLOG ASPART) SLIDING SCALE If C... ACHS SC 01/13/17 17:15 02/12/17 17:14 01/14/17 08:51 3 UNITS Aspirin (Ecotrin Tab) 81 mg HS PO 01/13/17 21:00 02/12/17 20:59 01/13/17 20:46 81 MG Enoxaparin Sodium (Lovenox Inj) 40 mg HS SQ 01/13/17 21:00 02/12/17 20:59 01/13/17 20:47 40 MG Clopidogrel Bisulfate (plAVix TAB) 75 mg QAM PO 01/14/17 09:00 02/13/17 08:59 01/14/17 08:45 75 MG Objective Vital Signs Date Time Temp Pulse Resp B/P Pulse Ox O2 Delivery O2 Flow Rate FiO2 01/14/17 08:18 96 Room Air 01/14/17 07:49 37.2 88 15 124/68 96 Room Air 01/14/17 07:31 Room Air 01/14/17 03:07 36.7 83 16 103/63 93 Nasal Cannula 2.0 01/13/17 23:51 95 Nasal Cannula 2.0 01/13/17 23:23 Room Air 01/13/17 22:51 36.9 80 16 104/66 94 Room Air 01/13/17 18:32 36.8 72 18 101/65 94 Room Air 01/13/17 15:40 Room Air 01/13/17 15:23 36.8 70 18 122/74 95 Room Air 01/13/17 14:32 72 18 100/61 91 01/13/17 13:37 75 16 96/58 92 Nasal Cannula 4.0 Physical Exam General Appearance: no apparent distress, + obese Respiratory/Chest: chest non-tender, lungs clear, normal breath sounds, no respiratory distress, no accessory muscle use Cardiovascular: regular rate, rhythm, no edema, no murmur Extremities: + pertinent finding (right elbow is wrapped) Laboratory Results Last 24 Hours Test 01/13/17 16:56 01/13/17 20:29 01/14/17 06:20 01/14/17 08:09 Bedside Glucose 185 mg/dl 284 mg/dl 192 mg/dl Sodium Level 136 mmol/L Potassium Level 3.9 mmol/L Chloride Level 101 mmol/L Carbon Dioxide Level 27 mmol/L Anion Gap 8.0 mmol/L Blood Urea Nitrogen 15 mg/dl Creatinine 1.10 mg/dl Est Creatinine Clear Calc Drug Dose 47.9 ml/min Estimated GFR () 58.9 Estimated GFR (Non- 50.8 BUN/Creatinine Ratio 13.6 Random Glucose 174 mg/dl Calcium Level 9.2 mg/dl Test 01/14/17 12:29 Bedside Glucose 281 mg/dl Assessment and Plan This is a 71 year old obese female with PMH of COPD and tobacco use disorder, insulin dependent DM2, diabetic peripheral neuropathy, CKD stage 3, HTN, HLD presents secondary to infected right elbow Sepsis secondary to Septic Right Elbow 01/14 MSSA growing waiting on sensitivities from the deep aspiration from the I&D de-escalate abx once that returns 01/13 presented with right elbow swelling, erythematous - low grade fever + lactic acidemia elbow U/S done showing subcutaneous edema right elbow aspirate - growing MSSA Continue Vancomycin, Zosyn s/p I & D and bursa resection on 01/13 by ortho deep aspirate cultures growing Insulin Dependent DM2 Lantus 15 units BID insulin sliding scale continue low dose CHRIS-I CKD stage 3 creat at baseline stop IVFs continue low dose CHRIS-I Hx. of CVA currently holding Plavix continue aspirin and Lovenox for now Plavix restart in AM (01/14) COPD patient is wheezing, with bronchial cough noted she states she's not short of breath and breathing at baseline nebulizers as needed DVT ppx Lovenox FULL CODE
--- NOTE | 2017-01-14 13:42 | Orthopedic Progress Note ---
Orthopedic Progress Note Date of Service Jan 14, 2017. Subjective Post OP Day: 1 Reports: feeling well, pain controlled w PO medications, Denies: complaints Additional Notes: States the right elbow is feeling much better. Overall, feeling better as well. Objective N/V intact, capillary refill less than 2 sec., incision C/D/I, A&O x3 Right elbow incision is well approximated. ~12 inches of packing removed today. New dressing applied with adaptic, gauze, ABD, kerlix wrap, and a new CHRIS bandage. The CHRIS was started at the hand to help with hand swelling. Right hand fingers are mobile. Decreased erythema of the elbow. No drainage noted. Swelling at the elbow has decreased since prior to admission. Date Time Temp Pulse Resp B/P Pulse Ox O2 Delivery O2 Flow Rate FiO2 01/14/17 08:18 96 Room Air 01/14/17 07:49 37.2 88 15 124/68 96 Room Air 01/14/17 07:31 Room Air 01/14/17 03:07 36.7 83 16 103/63 93 Nasal Cannula 2.0 01/13/17 23:51 95 Nasal Cannula 2.0 01/13/17 23:23 Room Air 01/13/17 22:51 36.9 80 16 104/66 94 Room Air 01/13/17 18:32 36.8 72 18 101/65 94 Room Air 01/13/17 15:40 Room Air 01/13/17 15:23 36.8 70 18 122/74 95 Room Air 01/13/17 14:32 72 18 100/61 91 01/13/17 13:37 75 16 96/58 92 Nasal Cannula 4.0 Assessment & Plan Assessment: POD #1 1. Incision and drainage, right elbow olecranon bursa. 2. Resection of septic olecranon bursa Plan: Cx as noted above Continue IV Ancef and await culture results. Plan will be to change the dressing tomorrow and evaluate wound. If cultures are finalized, will consider home antibiotic therapy for possible d/c tomorrow ( 4..17) or Saturday (4.5.17). Appreciate medicine input. Inhouse Planning Pain Management: Morphine, Oxy IR DVT Prophylaxis: ASA, Lovenox Discharge Planning Discharge Planning: home (Possibly tomorrow with PO antibiotic tx.)
[2017-01-14 14:58] VITALS: BP 93/59; PULSE 64; TEMP 36.9; O2SAT 94
[2017-01-14] MEDS: MECLIZINE HCL 25 MG TAB PO PRN (16:15)
[2017-01-14] MEDS ORDERED: DOCUSATE SODIUM 100 MG CAP PO ONE (20:15)
[2017-01-14] MEDS: ASPIRIN 81 MG ECTAB PO SCH (21:17)
[2017-01-14] MEDS: ATORVASTATIN 20 MG TAB PO SCH (21:17)
[2017-01-14] MEDS: GABAPENTIN 400 MG CAP PO SCH (21:18)
[2017-01-14] MEDS: ENOXAPARIN 40 MG/0.4 ML SYR SQ SCH (21:18)
[2017-01-14 22:50] VITALS: BP 136/71; PULSE 74; TEMP 36.8; O2SAT 92
[2017-01-15] MEDS: CEFAZOLIN IV 1,000 MG in DEXTROSE 5% 50ML 50 ML IV SCH (05:51)
[2017-01-15 07:07] VITALS: BP 125/73; PULSE 81; TEMP 36.8; O2SAT 94
[2017-01-15 08:08] LABS: BASO % 0.6 %; BASO ABS # 0.04 K/uL (0-0.2); COMPLETE YES; HEMATOCRIT 33.9 % (37-47); IG% 0.6 %; LYMPH % 21.7 %; LYMPH ABS # 1.53 K/uL (1.2-3.4); MEAN CELL VOLUME 79.6 fL (80-100); MEAN CORPUSCULAR HEMOGLOBIN 26.8 pg (25-34); MEAN CORPUSCULAR HGB CONC 33.6 g/dl (32-36); MONO % 9.4 %; NEUT % 60.7 %; PLATELET COUNT 349 K/uL (130-400); RED BLOOD COUNT 4.26 M/uL (4.2-5.4); WHITE BLOOD COUNT 7.05 K/uL (4.8-10.8)
[2017-01-15 08:38] LABS: BUN/CREATININE RATIO 12.6 (10-20); CALCIUM 9.3 mg/dl (8.5-10.1); CREATININE 1.1 mg/dl (0.60-1.20); MAGNESIUM 1.8 mg/dl (1.8-2.4)
[2017-01-15] MEDS ORDERED: DOCUSATE SODIUM 100 MG CAP PO SCH (09:00)
[2017-01-15] MEDS: LISINOPRIL 2.5 MG TAB PO SCH (09:13)
[2017-01-15] MEDS: PANTOprazole SOD 40 MG TAB PO SCH (09:15)
[2017-01-15] MEDS: CHOLECALCIFEROL 1000 INTER.UNIT TAB PO SCH (09:16)
[2017-01-15] MEDS: FLUOXETINE HCL 20 MG CAP PO SCH (09:17)
[2017-01-15] MEDS: CLOPIDOGREL BISULFATE 75 MG TAB PO SCH (09:17)
[2017-01-15] MEDS: VERAPAMIL HCL 240 MG TABCR PO SCH (09:18)
[2017-01-15] MEDS: INSULIN ASPART 100 UNITS/ML 3 ML PEN SC SCH ×2 (09:30→13:17)
[2017-01-15] MEDS: INSULIN GLARGINE SOLOSTAR 100 UNITS/ML 3 ML PEN SC SCH (09:31)
[2017-01-15 12:09] VITALS: BP 111/67; PULSE 82; TEMP 36.8; O2SAT 88
--- NOTE | 2017-01-15 13:01 | Orthopedic Progress Note ---
Orthopedic Progress Note Date of Service Jan 15, 2017. Subjective Post OP Day: 2 Reports: feeling well, pain controlled w PO medications, Denies: complaints Additional Notes: States the elbow is feeling well. No pain in the elbow. Extremely happy with the lack of swelling in the right hand. Objective N/V intact, capillary refill less than 2 sec., incision C/D/I, A&O x3 Right UE: Mild erythema at the olecranon. No drainage. No streaking. The forearm swelling has decreased. No swelling in the right hand today. Date Time Temp Pulse Resp B/P Pulse Ox O2 Delivery O2 Flow Rate FiO2 01/15/17 12:09 36.8 82 18 111/67 88 Room Air 01/15/17 10:56 Room Air 01/15/17 07:35 Room Air 01/15/17 07:07 36.8 81 18 125/73 94 Room Air 01/14/17 23:21 Room Air 01/14/17 22:50 36.8 74 18 136/71 92 Room Air 01/14/17 20:00 Room Air 01/14/17 14:58 36.9 64 18 93/59 94 Nasal Cannula 2.0 Laboratory Results 24 Hours: Test 01/15/17 07:30 White Blood Count 7.05 K/uL Red Blood Count 4.26 M/uL Hemoglobin 11.4 g/dL Hematocrit 33.9 % Mean Corpuscular Volume 79.6 fL Mean Corpuscular Hemoglobin 26.8 pg Mean Corpuscular Hemoglobin Concent 33.6 g/dl Platelet Count 349 K/uL Mean Platelet Volume 9.0 fL Neutrophils (%) (Auto) 60.7 % Lymphocytes (%) (Auto) 21.7 % Monocytes (%) (Auto) 9.4 % Eosinophils (%) (Auto) 7.0 % Basophils (%) (Auto) 0.6 % Neutrophils # (Auto) 4.29 K/uL Lymphocytes # (Auto) 1.53 K/uL Monocytes # (Auto) 0.66 K/uL Eosinophils # (Auto) 0.49 K/uL Basophils # (Auto) 0.04 K/uL Assessment & Plan Assessment: POD #2 1. Incision and drainage, right elbow olecranon bursa. 2. Resection of septic olecranon bursa Plan: Continue IV Ancef and await culture results. Plan will be to change the dressing tomorrow and evaluate wound. Dressing changed today. The rest of the packing removed. D/C home today on PO Keflex 500 QID for 14 days. Appreciate medicine input. Inhouse Planning Pain Management: Morphine, Oxy IR DVT Prophylaxis: ASA, Lovenox Discharge Planning Discharge Planning: home (Today) Pain Management: Badin
[2017-01-15] MEDS ORDERED: HYDR-5688 PO (13:02)
[2017-01-15] MEDS ORDERED: CEPH500C2 PO (13:02)
--- NOTE | 2017-01-15 13:05 | Discharge Instructions ---
Discharge Instructions Date of Service Jan 15, 2017. Admission Reason for Admission: Right Septic Olecranon Bursitis Discharge Discharge Diagnosis / Problem: right septic olecranon bursitis Discharge Goals Goal(s): Decrease discomfort, Improve function, Improve disease control Activity Recommendations Activity Limitations: per Instructions/Follow-up section . Instructions / Follow-Up Instructions / Follow-Up ACTIVITY RECOMMENDATIONS: * Avoid lifting anything heavier than a medium water glass until your first post operative visit. SPECIAL CARE INSTRUCTIONS: * Your bandage should be left in place and changed every other day unless saturated. * Some drainage onto the dressing may occur. This is normal. * If the bandage feels excessively tight, you may loosen the elastic bandage. Then call the physician's office for further instructions. * If possible, keep your hand elevated above the level of your heart for the first 2 post operative days. You may use a sling if necessary. * You should move your fingers regularly (50-100 motions per hour) unless otherwise instructed. SPECIAL PRECAUTIONS: * If you notice increased drainage, fever over 101 degrees F. or severe, unremitting pain, call your physician/office at . * You may have been prescribed pain medication. If you experience nausea and/or skin rash, discontinue this medication and contact our office for an alternative medication. FOLLOW UP VISIT: If appointment is not already scheduled: Please call [facility] to make a follow-up appointment after for 1 week from your discharge at . Current Hospital Diet Patient's current hospital diet: Diabetes Type 2 Diet Discharge Diet Recommended Diet: Diabetes Type 2 Diet Procedures Procedures Performed: 1. Incision and Drainage Right Olecranon Bursa (Elbow) 2. Resection septic olecranon bursa Pending Studies Studies pending at discharge: no Medical Emergencies . Who to Call and When: Medical Emergencies: If at any time you feel your situation is an emergency, please call 211 immediately. . Non-Emergent Contact Non-Emergency issues call your: Surgeon Call Non-Emergent contact if: temperature is above 101, your pain is worsening , wound has increased drainage, wound has increased redness . "Provider Documentation" section prepared by Sebastian Al. VTE Core Measure Inpt VTE Proph given/why not?: Enoxaparin (Lovenox)SQ
[2017-01-15 13:35] VITALS: BP 111/67; PULSE 82; TEMP 36.8; O2SAT 88
--- NOTE | 2017-01-15 14:11 | Progress Note ---
Subjective Date of Service: Jan 15, 2017. Subjective Pt evaluation today including: conversation w/ patient, conversation w/ family , physical exam, lab review, review of studies, conversation w/ vendor management consultant, review of inpatient medication list Saw/examined the patient in room 351 Doing well, no problems/issues Eager to get home Review of Systems Constitutional: No chills, No fever Abdomen: No diarrhea, No nausea, No pain, No vomiting Musculoskeletal: No joint pain Heme: No abnormal bleeding/bruising Medications Current Inpatient Medications Medications (Trade) Dose Ordered Sig/[place] Route Start Time Stop Time Status Last Admin Dose Admin Fluoxetine HCl (Prozac Cap) 40 mg QAM PO 01/12/17 09:00 02/11/17 08:59 01/15/17 09:17 40 MG Meclizine HCl (Antivert Tab) 25 mg TID PRN PO 01/11/17 21:45 02/10/17 21:44 01/14/17 16:15 25 MG Acetaminophen (Tylenol Tab) 650 mg Q6H PRN PO 01/11/17 22:30 02/10/17 22:29 Insulin Glargine (Lantus Solostar Pen) 15 unit BID SC 01/12/17 09:00 02/11/17 08:59 01/15/17 09:31 15 UNIT Verapamil HCl (Calan-Sr Tab) 240 mg DAILY PO 01/13/17 09:00 02/12/17 08:59 01/15/17 09:18 240 MG Lisinopril (Zestril Tab) 1.25 mg QAM PO 01/12/17 09:00 02/11/17 08:59 01/15/17 09:13 1.25 MG Ondansetron HCl (Zofran Inj) 4 mg Q6H PRN IV 01/11/17 23:30 02/10/17 23:29 Morphine Sulfate 4 mg 4 mg Q3H PRN IV 01/11/17 23:30 01/25/17 23:29 01/13/17 23:18 4 MG Lorazepam/Syringe (Ativan Inj/ Syringe) 1 ml @ 1 mls/min Q4H PRN IV 01/12/17 00:15 02/11/17 00:14 Ipratropium [place] (Atrovent 0.02% 0.5MG/2.5ML Neb) 0.5 mg Q4H PRN INH 01/12/17 04:45 02/11/17 04:44 Levalbuterol (Xopenex 1.25MG/ 0.5ML Neb) 1.25 mg Q4H PRN INH 01/12/17 04:45 02/11/17 04:44 Oxycodone HCl (Roxicodone Immediate Rel Tab) `1-2 tabs for pain 1 tab ... Q4HWA PRN PO 01/12/17 10:00 01/26/17 09:59 01/14/17 21:17 10 MG Miscellaneous Information 1 ea 1 ea UD N/A 01/13/17 09:00 02/12/17 08:59 Cefazolin Sodium/ Dextrose (Ancef Iv/D5 50ml) 55 ml @ 110 mls/hr Q8H IV 01/13/17 14:00 01/23/17 13:59 01/15/17 05:51 110 MLS/HR Insulin Aspart (novoLOG ASPART) SLIDING SCALE If C... ACHS SC 01/13/17 17:15 02/12/17 17:14 01/15/17 13:17 4 UNITS Aspirin (Ecotrin Tab) 81 mg HS PO 01/13/17 21:00 02/12/17 20:59 01/14/17 21:17 81 MG Enoxaparin Sodium (Lovenox Inj) 40 mg HS SQ 01/13/17 21:00 02/12/17 20:59 01/14/17 21:18 40 MG Clopidogrel Bisulfate (plAVix TAB) 75 mg QAM PO 01/14/17 09:00 02/13/17 08:59 01/15/17 09:17 75 MG Docusate Sodium (coLACE CAP) 100 mg DAILY PO 01/15/17 09:00 02/14/17 08:59 01/15/17 09:14 100 MG Objective Vital Signs Date Time Temp Pulse Resp B/P Pulse Ox O2 Delivery O2 Flow Rate FiO2 01/15/17 13:35 36.8 82 18 88 Room Air Nasal Cannula 01/15/17 12:09 36.8 82 18 111/67 88 Room Air 01/15/17 10:56 Room Air 01/15/17 07:35 Room Air 01/15/17 07:07 36.8 81 18 125/73 94 Room Air 01/14/17 23:21 Room Air 01/14/17 22:50 36.8 74 18 136/71 92 Room Air 01/14/17 20:00 Room Air 01/14/17 14:58 36.9 64 18 93/59 94 Nasal Cannula 2.0 Physical Exam General Appearance: no apparent distress Respiratory/Chest: no respiratory distress, no accessory muscle use Extremities: no pedal edema, + pertinent finding (right elbow, swelling improved; currently wrapped) Laboratory Results Last 24 Hours Test 01/14/17 16:58 01/14/17 21:14 01/15/17 07:30 01/15/17 08:10 Bedside Glucose 243 mg/dl 153 mg/dl 186 mg/dl White Blood Count 7.05 K/uL Red Blood Count 4.26 M/uL Hemoglobin 11.4 g/dL Hematocrit 33.9 % Mean Corpuscular Volume 79.6 fL Mean Corpuscular Hemoglobin 26.8 pg Mean Corpuscular Hemoglobin Concent 33.6 g/dl Platelet Count 349 K/uL Mean Platelet Volume 9.0 fL Neutrophils (%) (Auto) 60.7 % Lymphocytes (%) (Auto) 21.7 % Monocytes (%) (Auto) 9.4 % Eosinophils (%) (Auto) 7.0 % Basophils (%) (Auto) 0.6 % Neutrophils # (Auto) 4.29 K/uL Lymphocytes # (Auto) 1.53 K/uL Monocytes # (Auto) 0.66 K/uL Eosinophils # (Auto) 0.49 K/uL Basophils # (Auto) 0.04 K/uL RDW Standard Deviation 39.0 fL RDW Coefficient of Variation 13.6 % Immature Granulocyte % (Auto) 0.6 % Immature Granulocyte # (Auto) 0.04 K/uL Sodium Level 136 mmol/L Potassium Level 4.0 mmol/L Chloride Level 100 mmol/L Carbon Dioxide Level 27 mmol/L Anion Gap 9.0 mmol/L Blood Urea Nitrogen 14 mg/dl Creatinine 1.10 mg/dl Est Creatinine Clear Calc Drug Dose 47.9 ml/min Estimated GFR () 58.9 Estimated GFR (Non- 50.8 BUN/Creatinine Ratio 12.6 Random Glucose 179 mg/dl Calcium Level 9.3 mg/dl Magnesium Level 1.8 mg/dl Test 01/15/17 11:55 Bedside Glucose 215 mg/dl Assessment and Plan This is a 71 year old obese female with PMH of COPD and tobacco use disorder, insulin dependent DM2, diabetic peripheral neuropathy, CKD stage 3, HTN, HLD presents secondary to infected right elbow Sepsis secondary to Septic Right Elbow 01/15 MSSA can switch to Keflex on discharge plan for discharge home today 01/14 MSSA growing waiting on sensitivities from the deep aspiration from the I&D de-escalate abx once that returns 01/13 presented with right elbow swelling, erythematous - low grade fever + lactic acidemia elbow U/S done showing subcutaneous edema right elbow aspirate - growing MSSA Continue Vancomycin, Zosyn s/p I & D and bursa resection on 01/13 by ortho deep aspirate cultures growing Insulin Dependent DM2 Lantus 15 units BID insulin sliding scale continue low dose CHRIS-I CKD stage 3 creat at baseline stop IVFs continue low dose CHRIS-I Hx. of CVA currently holding Plavix continue aspirin and Lovenox for now Plavix restart in AM (01/14) COPD patient is wheezing, with bronchial cough noted she states she's not short of breath and breathing at baseline nebulizers as needed DVT ppx Lovenox FULL CODE
--- NOTE | 2017-01-17 12:51 | Discharge Summary ---
Orthopedic Discharge Summary Admission Date/Reason Jan 11, 2017 at 20:29 Right Septic Olecranon Bursitis. Discharge Date/Disposition Jan 15, 2017 Home Diagnosis Principal Diagnosis: Right septic olecranon bursitis Procedure(s) Performed 1. Incision and drainage, right elbow olecranon bursa. 2. Resection of septic olecranon bursa Consultations Medicine Medication Reconciliation New Medications: Cephalexin Monohydrate (Keflex) 500 Mg Cap 500 MG PO QID for 14 Days, #56 CAP Hydrocodone/Acetaminophen 5MG/325MG ([place] 5MG/325MG) Tab 1 TABLET PO Q6HWA PRN for Pain, #20 TAB PRN PAIN Continued Medications: Atorvastatin (Lipitor) 20 Mg Tab 20 MG PO DAILY, TAB Cholecalciferol (Vitamin D-1000) 1,000 Unit Tab 2000 INT-UNIT PO DAILY Clonazepam (Klonopin) 1 Mg Tab 1 MG PO HS, TAB Fluoxetine Hcl (Prozac) 40 Mg Cap 40 MG PO QAM, CAP Gabapentin (Neurontin) 400 Mg Cap 400 MG PO HS, CAP Glipizide (Glucotrol) 5 Mg Tab 5 MG PO BIDM, TAB Insulin Isophan/Regular (Humulin 70/30) Susp 10 UNITS SC BID, VIAL Lisinopril (Prinivil) 10 Mg Tab 10 MG PO DAILY, TAB Losartan Potassium (Losartan Potassium) 25 Mg Tab 25 MG PO DAILY, #90 Magnesium Oxide (Mg Supplement (Magnesium) 500 Mg Tab 500 MG PO DAILY Meclizine Hcl (Meclizine Hcl) 25 Mg Tab 25 MG PO TID PRN for PRN Metformin Hcl Er (Glucophage Er) 500 Mg Tab 500 MG PO BID, TAB Omeprazole (Prilosec) 20 Mg Cap 20 MG PO DAILY, CAP Verapamil Hcl (Verapamil Hcl Er) 240 Mg Cap 240 MG PO DAILY Admission Physical Exam As per Admitting History & Physical. Hospital Course The patient was admitted on 01.11.17 after aspiration of a septic olecranon bursa showed purulent d/c. She was admitted for IV antibiotics and had improvement on 4.10.30. She underwent an I & D and bursectomy on 4.11.30. On POD # 1, she was doing well with pain and some of the packing was removed. On POD #2, the rest of the packing was removed and she was then d/c'd home on PO Keflex QID for 14 days. Discharge Instructions Please refer to the electronic Patient Visit Report (Discharge Instructions) for additional information. ACTIVITY RECOMMENDATIONS: * Avoid lifting anything heavier than a medium water glass until your first post operative visit. SPECIAL CARE INSTRUCTIONS: * Your bandage should be left in place. * Some drainage onto the dressing may occur. This is normal. * If the bandage feels excessively tight, you may loosen the elastic bandage. Then call the physician's office for further instructions. * If possible, keep your hand elevated above the level of your heart for the first 2 post operative days. You may use a sling if necessary. * You should move your fingers regularly (50-100 motions per hour) unless otherwise instructed. SPECIAL PRECAUTIONS: * If you notice increased drainage, fever over 101 degrees F. or severe, unremitting pain, call your physician/office at . * You may have been prescribed pain medication. If you experience nausea and/or skin rash, discontinue this medication and contact our office for an alternative medication. FOLLOW UP VISIT: If appointment is not already scheduled: Please call [facility] to make a follow-up appointment for 1 week after discharge at .
== END 2017-01-15 14:01 | disposition home or self-care (01) | DRG 501 ==
LOC: C.MSW 20:29
PROVIDERS: ADMIT Orthopaedic Surgery Sports Medicine; ATTEND Orthopaedic Surgery Sports Medicine
PROC: 0M933ZZ Drainage of Right Elbow Bursa and Ligament, Percutaneous Approach (ICD-10-PCS; principal; 2017-01-13 09:30)
PROC: 0MB30ZZ Excision of Right Elbow Bursa and Ligament, Open Approach (ICD-10-PCS; principal; 2017-01-13 09:30)
DX: M71.121 Other infective bursitis, right elbow (principal); N18.4 Chronic kidney disease, stage 4 (severe); L03.113 Cellulitis of right upper limb; I12.9 Hypertensive chronic kidney disease with stage 1 through stage 4 chronic kidney disease, or unspecified chronic kidney disease; E11.22 Type 2 diabetes mellitus with diabetic chronic kidney disease; E11.9 Type 2 diabetes mellitus without complications; E66.9 Obesity, unspecified; Z86.73 Personal history of transient ischemic attack (TIA), and cerebral infarction without residual deficits; Z87.442 Personal history of urinary calculi; F32.9 Major depressive disorder, single episode, unspecified; J44.9 Chronic obstructive pulmonary disease, unspecified; E78.5 Hyperlipidemia, unspecified; Z79.899 Other long term (current) drug therapy; Z79.02 Long term (current) use of antithrombotics/antiplatelets; Z79.4 Long term (current) use of insulin; Z87.891 Personal history of nicotine dependence; Z90.49 Acquired absence of other specified parts of digestive tract; Z98.51 Tubal ligation status; Z79.82 Long term (current) use of aspirin; Z82.49 Family history of ischemic heart disease and other diseases of the circulatory system; Z83.3 Family history of diabetes mellitus; Z82.3 Family history of stroke; B95.61 Methicillin susceptible Staphylococcus aureus infection as the cause of diseases classified elsewhere